=== PATIENT | female | born 1955 | race Caucasian/White ===

== ENCOUNTER 2016-10-19 18:58 | Observation (INO) | payer OTHER ==
[~2016-10-19] VITALS: Ht 152.4 cm; Wt 91.0 kg
[~2016-10-19 18:58] MED LIST: ALBU0.08 NEB; ALBU6.7H INH; ASPI81TA81 PO; BLOOD GLUCOSE T1 TES; CHOL1CAP34 PO; CLOP75TA PO; FOLI1TAB6; LEVEMIR SQ; LEVO500T8 PO; LISI-515 PO; METF1000 PO; METH2.5T PO; METO25TA3 PO; MONT10TA4 PO; NEBUKIT5; NEBULIZER1 MI1; PANT20TA2 PO; PRAV20TA2 PO; SYMB80AE INH
[2016-10-19 18:59] VITALS: BP 131/81; PULSE 110; RESP 22; TEMP 98.8; O2SAT 92
[2016-10-19 19:05] VITALS: BP 189/85; PULSE 107; RESP 35; O2SAT 96
[2016-10-19] MEDS ORDERED: PRED1 PO (19:14)
[2016-10-19] MEDS ORDERED: LORazepam 2 MG/ML VIAL IV PUSH ONE (19:45)
[2016-10-19] MEDS ORDERED: methylPREDNISolone SOD SUCC 125 MG/2 ML VIAL IVP ONE (19:45)
[2016-10-19] MEDS ORDERED: SODIUM CHLORIDE 0.9% FLUSH 10 ML FLUSH IVF PRN (19:45)
[2016-10-19] MEDS: RESP: ALBUTEROL 2.5 MG/IPRATROPIUM 0.5 MG NEB (SCH) INH (19:47)
[2016-10-19 19:49] VITALS: O2SAT 95
[2016-10-19 20:19] LABS: AUTOMATED NEUTROPHIL # 12.1 TH/MM3 (1.8-7.7); BASOPHIL # 0.1 TH/MM3 (0-0.2); BASOPHIL % 0.8 % (0.0-2.0); EOSINOPHIL % 0.3 % (0.0-4.0); HEMATOCRIT 39.1 % (35.0-46.0); HEMO FLAGS DIFF FINAL; LYMPH % 16.9 % (9.0-44.0); LYMPHOCYTE # 2.7 TH/MM3 (1.0-4.8); MEAN CELL VOLUME 88.6 FL (80.0-100.0); MEAN CORPUSCULAR HEMOGLOBIN 29.8 PG (27.0-34.0); MEAN CORPUSCULAR HGB CONC 33.7 % (32.0-36.0); MONO % 5.5 % (0.0-8.0); NEUT % 76.5 % (16.0-70.0); PLATELET COUNT 393 TH/MM3 (150-450); RED BLOOD COUNT 4.42 MIL/MM3 (4.00-5.30); RED CELL DISTRIBUTION WIDTH 15.2 % (11.6-17.2); WHITE BLOOD COUNT 15.8 TH/MM3 (4.0-11.0)
[2016-10-19 20:28] LABS: INTERNATIONAL NORMALIZED RATIO 0.9 RATIO; PROTHROMBIN TIME - PATIENT 10.4 SEC (9.8-11.6)
[2016-10-19] MEDS ORDERED: MORPHINE SULFATE 4 MG/ML INJ IV PUSH ONE (20:30)
--- NOTE | 2016-10-19 20:38 | RADRPT ---
EXAM DATE/TIME: 10/19/2016 19:49 [facility] COMPARISON: CHEST PA & LAT, June 11, 2015, 15:27. INDICATIONS : Shortness of breath and chest pain. MEDICAL HISTORY : Chronic obstructive pulmonary disease. Hypertension Myocardial infarction. Asthma SURGICAL HISTORY : Hysterectomy. Tubal ligation. Stent. ENCOUNTER: Initial ACUITY: 1 day PAIN SCORE: 9/10 LOCATION: Bilateral chest FINDINGS: There is subsegmental basilar air space disease. No effusion. No pneumothorax. Heart size upper limit s normal. CONCLUSION: 1. Subsegmental basilar airspace disease. No effusion. No pneumothorax. Brett Gary MD on October 19, 2016 at 20:36 Board Certified Radiologist. This report was verified electronically.
[2016-10-19 20:44] LABS: ANION GAP 11 MEQ/L (5-15); BICARBONATE 23.2 MEQ/L (21.0-32.0); BLOOD UREA NITROGEN 13 MG/DL (7-18); CHLORIDE 100 MEQ/L (98-107); GLOMERULAR FILTRATION RATE 63 ML/MIN (>89); MAGNESIUM 1.5 MG/DL (1.5-2.5); POTASSIUM 4.2 MEQ/L (3.5-5.1); SODIUM (NA) 134 MEQ/L (136-145)
[2016-10-19 20:48] VITALS: BP 173/74; PULSE 105; RESP 28; O2SAT 95
[2016-10-19] MEDS: RESP: ALBUTEROL 2.5 MG/3 ML NEB (SCH) INH (21:26)
--- NOTE | 2016-10-19 21:48 | PD ---
HPI Chief Complaint: Respiratory Distress Time Seen by Provider: 19:15 Travel History International Travel<30 days: No Contact w/Intl Traveler<30days: No Traveled to known affect area: No History of Present Illness HPI 61-year-old female came to the emergency room with history of shortness of breath and chest pain that has been going on for past 2 days and progressively worsening. Patient appeared to be in significant distress. Her drove her to the hospital and she was brought in emergently from triage. Patient does not require oxygen at home. She has history of COPD. Her oxygen saturation on 2 L was 100%. Patient appeared to be in distress. She pointed to her right side of her chest under her breast where the pain is and radiates to the substernal area. Says the pain is sharp and worsened when she takes a deep breath. No history of fever or chills. She says she has been using her inhaler the entire day but it hasn't helped. Patient quit smoking 6 weeks ago. However her is still smoking. I could smell smoke in the room on the patient as well as her belongings. Patient was tachycardic upon arrival. No history of admission for COPD in the past. Patient has multiple comorbidities in the form of diabetes, hypertension, rheumatoid arthritis, coronary artery disease. She has a stent. She is on aspirin and Plavix. She appeared to be very anxious when she was talking to me. [facility] Past Medical History Narrative Medical List of her past medical, surgical, social and family history as reviewed from the nursing note. Arthritis: Yes Asthma: Yes Blood Disorders: No Cancer: No Cardiovascular Problems: Yes (TX/ STENT, TRANSIENT BRADYARRHYTHMIA) COPD: Yes Cerebrovascular Accident: Yes (LEFT SIDED WEAKNESS) Diabetes: Yes Patient Takes Glucophage: Yes (METFORMIN 10/19/16 @ 1730) Diminished Hearing: No Endocrine: Yes Gastrointestinal Disorders: Yes (NAUSEA) Genitourinary: Yes (INCONTINENCE) Hepatitis: No Hiatal Hernia: No Hypertension: Yes Immune Disorder: Yes (RA) Musculoskeletal: No Psychiatric: No Reproductive: Yes (RIGHT OVARIAN MASS) Respiratory: Yes (COPD) Sleep Apnea: Yes (used to use C-PAP @ NIGHT) Thyroid Disease: No Influenza Vaccination: No ?: Not Menopausal: Yes Tubal Ligation: Yes Past Surgical History Abdominal Surgery: Yes (CHOLECYSTECTOMY-2003) AICD: No Cholecystectomy: Yes Coronary Stent: Yes (X1) Gynecologic Surgery: Yes (TUBAL LIGATION) Hysterectomy: Yes Joint Replacement: No Pacemaker: No Tonsillectomy: Yes Other Surgery: Yes (L BREAT LUMPECTOMY X2) Social History Alcohol Use: No Tobacco Use: No (QUIT 6 WEEKS AGO) Substance Use: No Allergies-Medications (Allergen,Severity, Reaction): Coded Allergies: Sulfa (Sulfonamide Antibiotics) (Unverified Allergy, Severe, 10/19/16) egg (Unverified Allergy, Severe, 10/19/16) Comments List of her allergies reviewed from the nursing note. Reported Meds & Prescriptions Reported Meds & Active Scripts Active Blood Glucose Test Strips Strips Strip 1 Box .ROUTE BID Vitamin D3 (Cholecalciferol) 50,000 Unit Cap 50,000 Units PO Q7D Metformin (Metformin HCl) 1,000 Mg Tab 1,000 Mg PO BIDPC With meals Clopidogrel (Clopidogrel Bisulfate) 75 Mg Tab 75 Mg PO DAILY Nebulizer Kit/Tubing/Mout (N/A) 1 Kit Kit 1 Kit .ROUTE DIRECTED Nebulizer 1 Mis Mis 1 Ea .ROUTE DIRECTED Proventil Hfa 6.7 GM Inh (Albuterol Sulfate) 90 Mcg/Act Aer 2 Puff INH Q6H PRN Pantoprazole (Pantoprazole Sodium) 20 Mg Tab 20 Mg PO DAILY Pravastatin 20 Mg Tab 20 Mg PO HS Montelukast (Montelukast Sodium) 10 Mg Tab 10 Mg PO HS Lisinopril 20 Mg Tab 20 Mg PO DAILY Levemir Inj (Insulin Detemir) 1,000 unit/ 10 ML Vial 25 Units SQ BID Do not mix with any other Insulin. Aspir-81 (Aspirin) 81 Mg Tabdr 81 Mg PO DAILY Reported Prednisone 1 Mg Tab 1 Mg PO DAILY Methotrexate 2.5 Mg Tab 2.5 Mg PO DAILY Folic Acid 1 Mg Tablet Narrative Medication List of her home medications reviewed from the nursing note. Review of Systems Except as stated in HPI: all other systems reviewed are Neg Physical Exam Narrative GENERAL: Awake, alert, moderate distress, anxious, obese SKIN: Focused skin assessment warm/dry. HEAD: Atraumatic. Normocephalic. EYES: Pupils equal and round. No scleral icterus. No injection or drainage. ENT: No nasal bleeding or discharge. Mucous membranes pink and moist. NECK: Trachea midline. No JVD. CARDIOVASCULAR: Regular rate and rhythm. No murmur appreciated. RESPIRATORY: Decreased air entry bilaterally with end expiratory wheeze. Significant respiratory distress GASTROINTESTINAL: Abdomen soft, non-tender, nondistended. Hepatic and splenic margins not palpable. MUSCULOSKELETAL: No obvious deformities. No clubbing. No cyanosis. No edema. NEUROLOGICAL: Awake and alert. No obvious cranial nerve deficits. Motor grossly within normal limits. Normal speech. Carpopedal spasm of the right hand PSYCHIATRIC: Appropriate mood and affect; insight and judgment normal. Data Data Last Documented VS Vital Signs Date Time Temp Pulse Resp B/P (MAP) Pulse Ox O2 Delivery O2 Flow Rate FiO2 10/19/16 22:00 109 24 156/77 (103) 96 Nasal Cannula 2 10/19/16 18:59 98.8 Orders Orders Complete Blood Count With Diff (10/19/16 19:35) Basic Metabolic Panel (Bmp) (10/19/16 19:35) B-Type Natriuretic Peptide (10/19/16 19:35) Prothrombin Time / Inr (Pt) (10/19/16 19:35) Magnesium (Mg) (10/19/16 19:35) Troponin I (10/19/16 19:35) Iv Access Insert/Monitor (10/19/16 19:35) Electrocardiogram (10/19/16 19:35) Ecg Monitoring (10/19/16 19:35) Oximetry (10/19/16 19:35) Oxygen Administration (10/19/16 19:35) Chest, Single Ap (10/19/16 19:35) Sodium Chloride 0.9% Flush (Ns Flush) (10/19/16 19:45) Methylprednisolone So Succ Inj (Solumedr (10/19/16 19:45) Albuterol-Ipratropium Neb (Duoneb Neb) (10/19/16 19:45) Lorazepam Inj (Ativan Inj) (10/19/16 19:45) Morphine Inj (Morphine Inj) (10/19/16 20:30) Ct Pulmonary Angiogram (10/19/16 21:19) Albuterol Neb (Albuterol Neb) (10/19/16 21:30) Iohexol 350 Inj (Omnipaque 350 Inj) (10/19/16 22:09) Admit Order (Ed Use Only) (10/19/16 22:34) Labs Laboratory Tests Test 10/19/16 19:40 White Blood Count 15.8 TH/MM3 Red Blood Count 4.42 MIL/MM3 Hemoglobin 13.2 GM/DL Hematocrit 39.1 % Mean Corpuscular Volume 88.6 FL Mean Corpuscular Hemoglobin 29.8 PG Mean Corpuscular Hemoglobin Concent 33.7 % Red Cell Distribution Width 15.2 % Platelet Count 393 TH/MM3 Mean Platelet Volume 7.8 FL Neutrophils (%) (Auto) 76.5 % Lymphocytes (%) (Auto) 16.9 % Monocytes (%) (Auto) 5.5 % Eosinophils (%) (Auto) 0.3 % Basophils (%) (Auto) 0.8 % Neutrophils # (Auto) 12.1 TH/MM3 Lymphocytes # (Auto) 2.7 TH/MM3 Monocytes # (Auto) 0.9 TH/MM3 Eosinophils # (Auto) 0.0 TH/MM3 Basophils # (Auto) 0.1 TH/MM3 CBC Comment DIFF FINAL Differential Comment Prothrombin Time 10.4 SEC Prothromb Time International Ratio 0.9 RATIO Blood Urea Nitrogen 13 MG/DL Creatinine 0.91 MG/DL Random Glucose 264 MG/DL Calcium Level 8.7 MG/DL Magnesium Level 1.5 MG/DL Sodium Level 134 MEQ/L Potassium Level 4.2 MEQ/L Chloride Level 100 MEQ/L Carbon Dioxide Level 23.2 MEQ/L Anion Gap 11 MEQ/L Estimat Glomerular Filtration Rate 63 ML/MIN Troponin I LESS THAN 0.02 NG/ML B-Type Natriuretic Peptide 31 PG/ML MDM Medical Decision Making Medical Screen Exam Complete: Yes Emergency Medical Condition: Yes Medical Record Reviewed: Yes Interpretation(s) Twelve-lead EKG was reviewed by me. Normal sinus rhythm, normal axis, nonspecific ST-T wave changes. Heart rate of 97 bpm. Differential Diagnosis COPD exacerbation, pneumonia, PE, congestive heart failure, ACS, non-STEMI Narrative Course 9:52 PM blood test results of back and within acceptable limits. Patient does have some hyperglycemia. Chest x-ray shows some atelectasis but otherwise negative. Given her pleuritic chest pain I was concerned for PE and I have ordered a CT pulmonary angiogram. Awaiting for the allergic gram to be done and resulted. He was given 3 duo nebs initially upon arrival along with Ativan since she appeared extremely anxious. Patient upon reassessment said that she was feeling better although she still had some end expiratory wheeze. I've ordered 2 more albuterol treatments. She was complaining of the chest pain and she received morphine for that. I'll give her 2 baby aspirin as well. I've explained to her that she would require admission and she understands. Critical Care Narrative Aggregate critical care time was 45 minutes. Time to perform other separately billable procedures was not included in the critical care time. My time did not include minutes spent treating any other patients simultaneously or on activities that did not directly contribute to the patient's treatment. The services I provided to this patient were to treat and/or prevent clinically significant deterioration that could result in: Respiratory distress, acute COPD exacerbation I provided critical care services requiring my management, as noted below: Chart data review, documentation time, medication orders and management, vital sign assessments/reviewing monitor data, ordering and reviewing lab tests, ordering and interpreting/reviewing x-rays and diagnostic studies, care of the patient and discussion of the patient with the admitting physicians. Procedures EKG Prior to Arrival: No Diagnosis Primary Impression: Respiratory distress Additional Impressions: Acute exacerbation of chronic obstructive pulmonary disease (COPD) Chest pain Hyperglycemia Admitting Information Admitting Physician Requests: Admit Scripts Prednisone (Prednisone) 20 Mg Tab 20 MG PO DIRECTED for COPD, #11 TAB 0 Refills Take 40mg daily x 3 days, then take 20 MG daily x 3 days, then take 10 MG daily x 3 days, then stop. Prov: Monica Marquis PA-C 10/20/16 Glucocom Test Strips (Glucocom Test Strips) 1 Aleisha Aleisha 1 BOX .ROUTE DIRECTED for Blood Sugar Management, #1 BOX 11 Refills Prov: Monica Marquis PA-C 10/20/16 Cyclobenzaprine (Flexeril) 10 Mg Tab 10 MG PO Q12HR Y for MUSCLE SPASM, #20 TAB 0 Refills Prov: Monica Marquis PA-C 10/20/16 Levofloxacin (Levofloxacin) 750 Mg Tablet 750 MG PO DAILY for Infection, #6 TAB 0 Refills Prov: Monica Marquis PA-C 10/20/16 [Guaifenesin] 600 MG TABCR No Conflict Check 600 MG PO BID for Chest Congestion/Cough, #20 TAB.SR Prov: Monica Marquis PA-C 10/20/16 Budesonide-Formoterol Inh (Symbicort Inh) 160-4.5 Mcg/Act Aero 2 PUFF INH Q12HR for COPD, #1 INHALER 1 Refill Prov: Monica Marquis PA-C 10/20/16 Ipratropium-Albuterol Neb (Duoneb) 0.5-2.5 Mg/3 Ml Neb 1 NEBULE INH Q6HR NEB Y for SOB/WHEEZING, #120 NEBULE 0 Refills Prov: Monica Marquis PA-C 10/20/16 Raphael Nails MD Oct 19, 2016 21:48
[2016-10-19 22:00] VITALS: BP 156/77; PULSE 109; RESP 24; O2SAT 96
[2016-10-19] MEDS ORDERED: IOHEXOL 350 MG/ML 10 ML VIAL (for RAD DIAG) IV ONE (22:09)
--- NOTE | 2016-10-19 22:23 | RADRPT ---
EXAM DATE/TIME: 10/19/2016 22:07 [facility] COMPARISON: No previous studies available for comparison. INDICATIONS : Chest pain. IV CONTRAST: 75 cc Omnipaque 350 (iohexol) IV RADIATION DOSE: 23.31 CTDIvol (mGy) MEDICAL HISTORY : Cardiovascular disease. Hypertension. Cholelithiasis.Diabetes. SURGICAL HISTORY : None. ENCOUNTER: Initial ACUITY: 1 day PAIN SCALE: 8/10 LOCATION: chest TECHNIQUE: Volumetric scanning of the chest was performed using a pulmonary embolism protocol MIP images were re constructed. Using automated exposure control and adjustment of the mA and/or kV according to patien t size, radiation dose was kept as low as reasonably achievable to obtain optimal diagnostic quality images. DICOM format image data is available electronically for review and comparison. Follow-up recommendations for detected pulmonary nodules are based at a minimum on nodule size and pa tient risk factors according to Fleischner Society Guidelines. FINDINGS: No filling defects to suggest pulmonary embolus. Linear atelectasis or scarring at the lung bases. No dense consolidation. No pleural or pericardial effusion. Mildly enlarged mediastinal lymph nodes. Sc attered mild distal airway disease. CONCLUSION: 1. Negative for pulmonary embolus. 2. Scattered mild distal airway disease characterized by some mucoid plugging of mildly dilated dista l airways. Linear atelectasis or scarring at the lung bases. Brett Gary MD on October 19, 2016 at 22:18 Board Certified Radiologist. This report was verified electronically.
--- NOTE | 2016-10-19 22:54 | HHI.HP ---
[facility] Monique Mcallister MD Admission Diagnosis chest pain, respiratory distress, acute COPD exacerbation Diagnoses: (1) COPD (chronic obstructive pulmonary disease) Diagnosis: Principal (2) Chest pain Diagnosis: Principal (3) HTN (hypertension) Diagnosis: Principal (4) DM (diabetes mellitus) Diagnosis: Principal Travel History International Travel<30 Days: No Contact w/Intl Traveler <30 Da: No Traveled to Known Affected Are: No History of Present Illness This is a 61-year-old female with a PMH of HTN, DM, CAD, COPD and h/o CVA who presented to the ER with SOB and chest pain x2 days. States symptoms have gotten progressively more severe today. Denies fever, chills, cough or sick contacts. On arrival, BP 131/81, HR 110, O2 sat 92% on RA, Afebrile. WBC 15.8. Chemistry essentially unremarkable except for BS 264. Troponin negative. INR 0.9. CXR was subsegmental basilar space disease. CTA Pulm negative for PE, scattered mild distal airway disease with mucoid plugging. S/ p Solu-Medrol, DuoNeb in ER w/ some improvement, however persistently increased work of breathing. Review of Systems Except as stated in HPI: all other systems reviewed are Neg ROS: 14 point review of systems otherwise negative. Past Family Social History Past Medical History PMH: HTN, DM, CAD, COPD and h/o CVA Past Surgical History PAST SURGICAL HISTORY: Cholecystectomy, Tubal Ligation, Cardiac Stent, Hysterectomy, Tonsillectomy, Left Breast Lumpectomy Allergies: Coded Allergies: Sulfa (Sulfonamide Antibiotics) (Unverified Allergy, Severe, 10/19/16) egg (Unverified Allergy, Severe, 10/19/16) Family History PAST FAMILY HISTORY: Reviewed, positive for DM. Social History PAST SOCIAL HISTORY: Negative for alcohol, tobacco or drugs. Physical Exam Vital Signs Vital Signs Date Time Temp Pulse Resp B/P Pulse Ox O2 Delivery O2 Flow Rate FiO2 10/19/16 20:48 105 28 173/74 95 Nasal Cannula 2 10/19/16 19:49 95 Nasal Cannula 2.00 10/19/16 19:15 95 32 96 Nasal Cannula 2 10/19/16 19:15 97 Nasal Cannula 2 10/19/16 19:05 107 35 189/85 96 10/19/16 18:59 98.8 110 22 131/81 92 Physical Exam PE: GENERAL: Middle-aged white female in mild distress secondary to SOB. HEENT: PERRLA, EOMI. No scleral icterus or conjunctival pallor. No lid lag or facial droop. CARDIOVASCULAR: Regular rate and rhythm. No obvious murmurs to auscultation. No chest tenderness to palpation. RESPIRATORY: No obvious rhonchi. + wheezing. Clear to auscultation. Breath sounds equal bilaterally. GASTROINTESTINAL: Abdomen soft, non-tender, nondistended. BS normal. MUSCULOSKELETAL: Extremities without clubbing, cyanosis, or edema. No obvious deformities. NEUROLOGICAL: Awake, alert and oriented x4. No focal neurologic deficits. Moving both upper and lower extremities spontaneously. Laboratory Laboratory Tests Test 10/19/16 19:40 White Blood Count 15.8 Red Blood Count 4.42 Hemoglobin 13.2 Hematocrit 39.1 Mean Corpuscular Volume 88.6 Mean Corpuscular Hemoglobin 29.8 Mean Corpuscular Hemoglobin 33.7 Concent Red Cell Distribution Width 15.2 Platelet Count 393 Mean Platelet Volume 7.8 Neutrophils (%) (Auto) 76.5 Lymphocytes (%) (Auto) 16.9 Monocytes (%) (Auto) 5.5 Eosinophils (%) (Auto) 0.3 Basophils (%) (Auto) 0.8 Neutrophils # (Auto) 12.1 Lymphocytes # (Auto) 2.7 Monocytes # (Auto) 0.9 Eosinophils # (Auto) 0.0 Basophils # (Auto) 0.1 CBC Comment DIFF FINAL Differential Comment Prothrombin Time 10.4 Prothromb Time International 0.9 Ratio Sodium Level 134 Potassium Level 4.2 Chloride Level 100 Carbon Dioxide Level 23.2 Anion Gap 11 Blood Urea Nitrogen 13 Creatinine 0.91 Estimat Glomerular Filtration 63 Rate Random Glucose 264 Calcium Level 8.7 Magnesium Level 1.5 Troponin I LESS THAN 0.02 B-Type Natriuretic Peptide 31 Result Diagram: 10/19/16193910/19/161939 Assessment and Plan Problem List: (1) COPD (chronic obstructive pulmonary disease) ICD Code: J44.9 Status: Acute (2) Chest pain ICD Code: R07.9 Status: Acute (3) HTN (hypertension) ICD Code: I10 Status: Acute (4) DM (diabetes mellitus) ICD Code: E11.9 Status: Acute Assessment and Plan A/P: 1. COPD: Chronic Respiratory Failure with Acute Exacerbation. O2 sat 92% on RA. CXR with basilar airspace disease. CTA Pulm negative for PE, scattered distal airway disease with mucoid plugging, images reviewed by me. S/p Solu- Medrol and DuoNeb in the ER, will continue with Solu-Medrol, DuoNeb, Symbicort and Mucinex. 2. Chest Pain: Likely secondary to COPD with acute SOB. Initial troponin negative. No acute ischemia. Will check serial cardiac enzymes, lipid profile and Hgb A1c. Start ASA and Statin. Resume home Metoprolol. 3. HTN: BP 150 to 180s, likely compounded by SOB. Resume home medications, monitor BP. 4. DM: Sliding scale with Accu-Cheks. Resume home insulin. 5. DVT Prophylaxis: SCD/teds. 6. Social work for DC planning as needed. 7. Case discussed at length with ER physician. Problem Qualifiers (1) Chest pain: Qualified Code: R07.9 - Chest pain, unspecified type Anika Bonds MD Oct 19, 2016 22:54
[2016-10-19] MEDS ORDERED: SODIUM CHLORIDE 0.9% FLUSH 10 ML FLUSH IV FLUSH PRN (23:00)
[2016-10-19] MEDS ORDERED: GLUCAGON 1 MG/ML VIAL OTHER PRN (23:00)
[2016-10-19] MEDS ORDERED: MAGNESIUM HYDROXIDE SUSP 30 ML CUP PO PRN (23:00)
[2016-10-19] MEDS ORDERED: LACTULOSE SYRUP 20 GM/30 ML CUP PO PRN (23:00)
[2016-10-19] MEDS ORDERED: SENNOSIDES 8.6 MG TAB PO PRN (23:00)
[2016-10-19] MEDS ORDERED: ONDANSETRON HCL 4 MG/2 ML VIAL IVP PRN (23:00)
[2016-10-19] MEDS ORDERED: LEVOFLOXACIN 750 MG PREMIX INJ 150 ML IV SCH (23:00)
[2016-10-19] MEDS ORDERED: ACETAMINOPHEN/HYDROcodone 325 MG/5 MG TAB PO PRN (23:00)
[2016-10-19] MEDS ORDERED: ACETAMINOPHEN/HYDROcodone 325 MG/10 MG TAB PO PRN (23:00)
[2016-10-19] MEDS ORDERED: ACETAMINOPHEN 325 MG TAB PO PRN (23:00)
[2016-10-19] MEDS ORDERED: DEXTROSE 50% IN WATER 50 ML VIAL(D50) IV PRN (23:00)
[2016-10-19] MEDS ORDERED: BISACODYL 10 MG SUPP RECTAL PRN (23:00)
[2016-10-20] MEDS: methylPREDNISolone SOD SUCC 40 MG/1 ML VIAL IV PUSH SCH ×2 (00:50→05:54)
[2016-10-20 05:50] VITALS: BP 123/62; PULSE 104; RESP 20; TEMP 98; O2SAT 95
[2016-10-20] MEDS ORDERED: INSULIN ASPART SUPPLEMENTAL SCALE SQ SCH (07:00)
[2016-10-20] MEDS ORDERED: GLUCTES12 (08:33)
[2016-10-20] MEDS ORDERED: LEVO750T3 PO (08:33)
[2016-10-20] MEDS ORDERED: guaiFENesin ER PO (08:33)
[2016-10-20] MEDS ORDERED: CYCL1TAB29 PO (08:33)
[2016-10-20] MEDS ORDERED: IPRASOL INH (08:33)
[2016-10-20] MEDS ORDERED: SYMB160A INH (08:33)
--- NOTE | 2016-10-20 08:34 | HHI.DCPOC ---
Discharge Care Plan Diagnosis: (1) Acute exacerbation of chronic obstructive pulmonary disease (COPD) (2) HTN (hypertension) (3) DM (diabetes mellitus) (4) mucoid plugging distal airway Goals to Promote Your Health * To prevent worsening of your condition and complications * To maintain your health at the optimal level Directions to Meet Your Goals Take your medications as prescribed Follow your dietary instruction Follow activity as directed Keep your appointments as scheduled Take your immunizations and boosters as scheduled If your symptoms worsen call your PCP, if no PCP go to Urgent Care Center or Emergency Room Smoking is Dangerous to Your Health. Avoid second hand smoke Call the 24-hour hour crisis hotline for domestic abuse at Monica Marquis PA-C Oct 20, 2016 8:34 am
[2016-10-20] MEDS ORDERED: PRED20 PO (08:37)
--- NOTE | 2016-10-20 08:53 | HHI.PR ---
Subjective Remarks Follow up for shortness of breath, COPD exacerbation. The patient is seen sitting upright in bed, dressed, wants to go home. She states she is feeling much better, denies any significant shortness of breath. Denies ever having any chest pains. Still has nonproductive cough and occasional wheezing, relieved by nebs. Denies fevers/chills. O2 sat 95% on room air which she states is her baseline. She does not wear oxygen at home. Her ex- is at bedside, very supportive, helps manage the patient's medications. Objective Vitals Vital Signs Date Time Temp Pulse Resp B/P Pulse Ox O2 Delivery O2 Flow Rate FiO2 10/20/16 05:50 98.0 104 20 123/62 95 10/20/16 00:31 99 22 97 Nasal Cannula 2 10/19/16 22:00 109 24 156/77 96 Nasal Cannula 2 10/19/16 20:48 105 28 173/74 95 Nasal Cannula 2 10/19/16 19:49 95 Nasal Cannula 2.00 10/19/16 19:15 95 32 96 Nasal Cannula 2 10/19/16 19:15 97 Nasal Cannula 2 10/19/16 19:05 107 35 189/85 96 10/19/16 18:59 98.8 110 22 131/81 92 Result Diagram: 10/19/16193910/19/161939 Imaging Last Impressions CT Angiography 10/19/162118 Signed Impressions: Service Date/Time: October 22:07 - CONCLUSION: 1. Negative for pulmonary embolus. 2. Scattered mild distal airway disease characterized by some mucoid plugging of mildly dilated distal airways. Linear atelectasis or scarring at the lung bases. Brett Gary MD Chest X-Ray 10/19/161934 Signed Impressions: Service Date/Time: October 19:49 - CONCLUSION: 1. Subsegmental basilar airspace disease. No effusion. No pneumothorax. Brett Gary MD Objective Remarks GENERAL: Well-nourished, well-developed middle aged female patient in [facility]. SKIN: Warm and dry. No rash. HEENT: Normocephalic. Atraumatic.Pupils equal and round. Mucous membranes pink and moist. NECK: Supple. Trachea midline. CARDIOVASCULAR: Regular rate and rhythm. S1, S2 noted. No murmur appreciated. RESPIRATORY: No accessory muscle use. Slightly diminished at b/l bases, otherwise clear to auscultation. Breath sounds equal bilaterally. GASTROINTESTINAL: Abdomen soft, non-tender, nondistended. Normoactive bowel sounds x4. MUSCULOSKELETAL: No obvious deformities. Extremities without clubbing, cyanosis , or edema. NEUROLOGICAL: Awake and alert. No obvious cranial nerve deficits. Motor grossly within normal limits. Normal speech. PSYCHIATRIC: Anxious mood; insight and judgment normal. Medications and IVs Current Medications Medications (Trade) Dose Ordered Sig/Enrrique Route Start Time Stop Time Status Last Admin (D50w (Vial) Inj) 50 ml UNSCH PRN IV 10/19/16 23:00 (Glucagon Inj) 1 mg UNSCH PRN OTHER 10/19/16 23:00 (SoluMEDROL INJ) 40 mg Q6HR IV PUSH 10/20/16 00:00 10/20/16 05:54 (Mucinex Er) 600 mg BID PO 10/20/16 09:00 10/20/16 09:04 Budesonide/ Formoterol Fumarate 2 puff 2 puff Q12HR INH 10/20/16 09:00 (Levaquin 750 Mg Premix Inj) 150 ml @ 100 mls/hr Q24H IV 10/19/16 23:00 10/19/16 23:12 (NS Flush) 2 ml UNSCH PRN IV FLUSH 10/19/16 23:00 (NS Flush) 2 ml BID IV FLUSH 10/20/16 09:00 10/20/16 09:05 (Zofran Inj) 4 mg Q6H PRN IVP 10/19/16 23:00 (Tylenol) 650 mg Q6H PRN PO 10/19/16 23:00 (Bath 5-325 Mg) 1 tab Q4H PRN PO 10/19/16 23:00 (Bath 10-325 Mg) 1 tab Q4H PRN PO 10/19/16 23:00 (Gosia-Colace) 1 tab BID PO 10/20/16 09:00 (Milk Of Magnesia Liq) 30 ml Q12H PRN PO 10/19/16 23:00 (Senokot) 17.2 mg Q12H PRN PO 10/19/16 23:00 (Dulcolax Supp) 10 mg DAILY PRN RECTAL 10/19/16 23:00 (Lactulose Liq) 30 ml DAILY PRN PO 10/19/16 23:00 (Ecotrin Ec) 81 mg DAILY PO 10/20/16 09:00 10/20/16 09:04 (Pravachol) 40 mg DAILY PO 10/20/16 09:00 10/20/16 09:02 (Plavix) 75 mg DAILY PO 10/20/16 09:00 10/20/16 09:03 (Prinivil) 20 mg DAILY PO 10/20/16 09:00 10/20/16 09:04 (Singulair) 10 mg HS PO 10/20/16 21:00 (Protonix) 20 mg DAILY PO 10/20/16 09:00 10/20/16 09:03 (NovoLOG INJ) 10 units ONCE ONCE SQ 10/20/16 09:00 10/20/16 09:01 UNV (Lopressor) 12.5 mg DAILY PO 10/21/16 09:00 UNV (Levemir Inj) 30 units BID SQ 10/20/16 21:00 UNV (Levemir Inj) 5 units ONCE SQ 10/20/16 09:15 UNV A/P Problem List: (1) COPD (chronic obstructive pulmonary disease) ICD Code: J44.9 Status: Acute (2) Chest pain ICD Code: R07.9 Status: Acute (3) HTN (hypertension) ICD Code: I10 Status: Acute (4) DM (diabetes mellitus) ICD Code: E11.9 Status: Acute Assessment and Plan 61-year-old female with a PMH of HTN, DM, CAD, COPD and h/o CVA who presented to the ER with SOB and chest pain x2 days. Acute COPD Exacerbation: O2 sat 92% on RA. CXR images reviewed, shows basilar airspace disease. CT-PA images reviewed, negative for PE, shows scattered distal airway disease with mucoid plugging. Continue IV Solu-Medrol 40mg q8h, DuoNebs q6h enrrique and q4h prn, Symbicort bid and Mucinex bid. Symptoms improving. Chest Pain: Secondary to COPD with acute SOB. Initial troponin negative. No acute ischemia. ACS ruled out with negative troponins x2. Check lipid profile and Hgb A1c. Started ASA and Statin. Resume home Metoprolol. HTN: BP 150 to 180s, likely compounded by SOB. Resume home medications, monitor BP, improved. Hyperglycemia with type 2 DM: BG 572 this morning, suspect secondary to steroid administration. Monitor Accu-checks. Increase to high dose SSI. Increase patient 's Levemir from 25u bid to 30u bid while on steroids. Educated patient on close monitoring of blood glucose while on steroids. DVT Prophylaxis: SCD/teds. Discharge Planning 0900hrs: Likely discharge later today if BG < 300. Suspect patient may leave AMA even if BG not less than 300. All prescriptions printed in anticipation as I believe the patient needs these prescriptions even if she decides to leave. 1500hrs: Patient's blood sugar 236. She says she's not staying in the hospital any longer no matter what. Patient stable for discharge, will discharge home. Discharge patient to home Condition on discharge: Improved Heart Healthy/Diabetic Diet as tolerated Ad Portia activity Rx written: Duonebs, Prednisone taper, Levaquin, Symbicort, Flexeril, glucose test strips Follow-up with primary care physician within 1 week Problem Qualifiers (1) Chest pain: Qualified Code: R07.9 - Chest pain, unspecified type Monica Marquis PA-C Oct 20, 2016 8:53 am
[2016-10-20] MEDS ORDERED: PANTOPRAZOLE SOD 20 MG DELAYED RELEASE TAB PO SCH (09:00)
[2016-10-20] MEDS ORDERED: CLOPIDOGREL 75 MG TAB PO SCH (09:00)
[2016-10-20] MEDS ORDERED: LISINOPRIL 20 MG TAB PO SCH (09:00)
[2016-10-20] MEDS ORDERED: SODIUM CHLORIDE 0.9% FLUSH 10 ML FLUSH IV FLUSH SCH (09:00)
[2016-10-20] MEDS ORDERED: METOPROLOL TARTRATE 25 MG TAB PO SCH (09:00)
[2016-10-20] MEDS ORDERED: PRAVASTATIN SOD 40 MG TAB PO SCH (09:00)
[2016-10-20] MEDS ORDERED: ASPIRIN EC 81 MG TABEC PO SCH (09:00)
[2016-10-20] MEDS ORDERED: INSULIN DETEMIR 100 UNITS/ML VIAL SQ SCH ×3 (09:00→21:00)
[2016-10-20] MEDS ORDERED: BUDESONIDE-FORMOTEROL 160/4.5 MCG INHALER INH SCH (09:00)
[2016-10-20] MEDS ORDERED: guaiFENesin E.R. 600 MG TAB PO SCH (09:00)
[2016-10-20] MEDS: DOCUSATE SODIUM 50 MG/SENNA 8.6 MG TAB PO SCH ×2 (09:04→09:20)
[2016-10-20] MEDS ORDERED: METO25TA3 PO (09:11)
[2016-10-20] MEDS ORDERED: RESP: ALBUTEROL 2.5 MG/IPRATROPIUM 0.5 MG NEB (PRN) NEB (09:45)
[2016-10-20] MEDS ORDERED: INSULIN ASPART 1,000 UNITS/10 ML VIAL SQ ONE (09:45)
[2016-10-20] MEDS ORDERED: PILL SPLITTER OTHER PRN (09:45)
[2016-10-20 12:01] VITALS: BP 143/92; PULSE 98; RESP 18; TEMP 97.9; O2SAT 96
[2016-10-20 12:21] LABS: AUTOMATED NEUTROPHIL # 13.8 TH/MM3 (1.8-7.7); BASOPHIL # 0.1 TH/MM3 (0-0.2); BASOPHIL % 0.8 % (0.0-2.0); HEMATOCRIT 36.5 % (35.0-46.0); HEMO FLAGS DIFF FINAL; LYMPH % 8.6 % (9.0-44.0); LYMPHOCYTE # 1.3 TH/MM3 (1.0-4.8); MEAN CELL VOLUME 88.9 FL (80.0-100.0); MEAN CORPUSCULAR HEMOGLOBIN 30.1 PG (27.0-34.0); MEAN CORPUSCULAR HGB CONC 33.8 % (32.0-36.0); MONO % 1.4 % (0.0-8.0); NEUT % 89.2 % (16.0-70.0); PLATELET COUNT 344 TH/MM3 (150-450); RED CELL DISTRIBUTION WIDTH 15.4 % (11.6-17.2); WHITE BLOOD COUNT 15.5 TH/MM3 (4.0-11.0)
[2016-10-20 12:48] LABS: HDL CHOLESTEROL 50.5 MG/DL (40.0-60.0); LDL CHOLESTEROL 73 MG/DL (0-99)
[2016-10-20] MEDS: INSULIN ASPART SUPPLEMENTAL SCALE SQ SCH ×2 (13:05→16:00)
[2016-10-20] MEDS ORDERED: RESP: ALBUTEROL 2.5 MG/IPRATROPIUM 0.5 MG NEB (SCH) NEB (14:00)
[2016-10-20] MEDS ORDERED: methylPREDNISolone SOD SUCC 40 MG/1 ML VIAL IV PUSH SCH (14:00)
--- NOTE | 2016-10-20 15:08 | EKG ---
Date Performed: 10/19/2016 Time Performed: 19:14:24 PTAGE: 61 years EKG: Sinus rhythm NORMAL ECG PREVIOUS TRACING : 11/15/2010 02.14 Since previous tracing, no significant change noted DOCTOR: Nick Ku Interpretating Date/Time 10/20/2016 15:07:17
[2016-10-20 17:21] LABS: HEMOGLOBIN A1a 1.5 %; HEMOGLOBIN A1b 1.6 %; HEMOGLOBIN F 2.2 %; HEMOGLOBIN LA1C 4.5 %; HEMOGLOBIN P3 5.4 %
[2016-10-20] MEDS ORDERED: MONTELUKAST SODIUM 10 MG TAB PO SCH (21:00)
[2016-10-21] MEDS ORDERED: METOPROLOL TARTRATE 25 MG TAB PO SCH (09:00)
[2016-12-22] MEDS ORDERED: PANT20TA2 PO (11:40)
[2016-12-22] MEDS ORDERED: MONT10TA4 PO (11:40)
[2016-12-22] MEDS ORDERED: PRAV20TA2 PO (11:40)
== END 2016-10-20 17:36 | disposition home or self-care (01) ==
LOC: NEPC 18:58 → NEDA 22:36 → NEPFCDU 10-20 00:39
PROVIDERS: ADMIT Hospitalist; ATTEND Hospitalist
DX: J44.1 Chronic obstructive pulmonary disease with (acute) exacerbation (principal); R07.9 Chest pain, unspecified; J96.20 Acute and chronic respiratory failure, unspecified whether with hypoxia or hypercapnia; I10 Essential (primary) hypertension; I25.10 Atherosclerotic heart disease of native coronary artery without angina pectoris; E11.9 Type 2 diabetes mellitus without complications; Z79.4 Long term (current) use of insulin; Z86.73 Personal history of transient ischemic attack (TIA), and cerebral infarction without residual deficits; Z95.5 Presence of coronary angioplasty implant and graft; Z79.899 Other long term (current) drug therapy
CPT/HCPCS: 71010; 71275; 80048; 80061; 82948; 83036; 83735; 83880; 84484; 85025; 85610; 93005; 94640; 94664; 96365; 96366; 96372; 96375; 99285; G0378; J1815; J1956; J2060; J2270; J2920; J2930; J7613; Q9967